=== PATIENT | male | born 1985 | race African-American/Black ===

== ENCOUNTER 2016-05-20 02:37 | Emergency (ER) | payer MEDICARE, MEDICAID ==
[~2016-05-20] VITALS: Ht 185.4 cm; Wt 120.0 kg
[~2016-05-20 02:37] MED LIST: CYCL5TAB PO; NAPR-576 PO
[2016-05-20 02:53] VITALS: BP 127/60; PULSE 81; RESP 16; TEMP 98; O2SAT 94
[2016-05-20] MEDS ORDERED: DICL75TA PO (03:21)
--- NOTE | 2016-05-20 03:24 | PD ---
HPI Chief Complaint: Pain: Acute or Chronic Time Seen by Provider: 03:21 Travel History International Travel<30 days: No Contact w/Intl Traveler<30days: No Traveled to known affect area: No History of Present Illness HPI 31-year-old black male presents to emergency department with complains of left foot pain. He states that he had stubbed his foot he recently and has had pain in his distal forefoot. He has not taking any medications at home for this. States the pain is mild. He denies any other medical complaints. Exacerbated by walking. Alleviated by elevation and rest. PFSH Past Medical History Narrative Medical Schizophrenia, Bipolar Blood Disorders: No Bipolar Disorder: Yes Anxiety: Yes Depression: No Cancer: No Cardiovascular Problems: No Diminished Hearing: No Endocrine: No Gastrointestinal Disorders: No Glaucoma: No Genitourinary: No Hiatal Hernia: No Immune Disorder: No Musculoskeletal: No Neurologic: No Psychiatric: Yes ([facility] 11/08/05) Reproductive: No Respiratory: No Schizophrenia: Yes Seizures: Yes Sleep Apnea: No Tetanus Vaccination: < 5 Years Past Surgical History Abdominal Surgery: No AICD: No Appendectomy: No Arteriovenous Shunt: No Cardiac Surgery: No Cholecystectomy: No Ear Surgery: No Endocrine Surgery: No Eye Surgery: No Genitourinary Surgery: No Gynecologic Surgery: No Insulin Pump: No Joint Replacement: No Neurologic Surgery: No Oral Surgery: No Pacemaker: No Thoracic Surgery: No Other Surgery: No Social History Alcohol Use: No Tobacco Use: Yes (FEW CIGS EVERY OTHER DAY) Substance Use: No Allergies-Medications (Allergen,Severity, Reaction): Coded Allergies: No Known Allergies (Verified , 03/17/15) Reported Meds & Prescriptions Reported Meds & Active Scripts Active Naproxen 500 Mg Tab 500 Mg PO Q12HR PRN Flexeril (Cyclobenzaprine HCl) 5 Mg Tab 5 Mg PO Q8HR PRN Review of Systems Except as stated in HPI: all other systems reviewed are Neg Musculoskeletal: Positive: Limited ROM, Pain, No: Myalgias, Arthralgias, Weakness, Cramping, Edema Physical Exam Narrative GENERAL: This is a well-nourished, well-developed patient, in no apparent distress. SKIN: No rashes, ecchymoses or lesions. Warm and dry. HEAD: Atraumatic. Normocephalic. EYES: PERRL, EOMI, no discharge or injection. No scleral icterus. EARS: Clear NOSE: Nasal turbinates appear normal. THROAT: Mucosa pink and moist. Airway patent. NECK: Trachea midline. supple, moves head freely. LUNGS: Clear to auscultation. CV: Regular in rhythm. ABDOMEN: Soft nontender. EXT: No clubbing cyanosis or edema. Examination of the left lower extremity is unremarkable. The patient's left foot reveals no erythema, warmth, tenderness or deformities. The skin is intact. He has good distal pulses. He ambulates with a normal gait. Data Data Last Documented VS Vital Signs Date Time Temp Pulse Resp B/P Pulse Ox O2 Delivery O2 Flow Rate FiO2 05/20/16 02:53 98.0 81 16 127/60 94 Orders Naproxen (Naprosyn) (05/20/16 03:30) MDM Medical Decision Making Medical Screen Exam Complete: Yes Emergency Medical Condition: Yes Medical Record Reviewed: Yes Differential Diagnosis MDM: High Differential diagnoses: Fracture, sprain, strain, dislocation, contusion, neurovascular injury Narrative Course This is left foot contusion Patient Instructions: General Instructions Additional Instructions: Rest. Elevation. Ice. Daily wound care with soap and water. Diclofenac for pain. Follow-up with your doctor or a vendor manager within 1 week. Med/Other Pt SpecificInfo: Prescription(s) given Scripts Diclofenac Sodium DR 75 Mg Tabdr75 Mg PO BID #20 TAB Prov:Ania Almaguer MD 05/20/16 Disposition: 01 DISCHARGE HOME Condition: Stable Julio Cesar Pool May 20, 2016 03:24
[2016-05-20] MEDS ORDERED: NAPROXEN 500 MG TAB PO ONE (03:30)
== END 2016-05-20 03:39 | disposition home or self-care (01) ==
LOC: NEPB 02:37
DX: S90.32XA Contusion of left foot, initial encounter (principal); W22.8XXA Striking against or struck by other objects, initial encounter
CPT/HCPCS: 99283

== ENCOUNTER 2016-06-06 23:51 | Emergency (ER) | payer MEDICARE, MEDICAID ==
[~2016-06-06 23:51] MED LIST changes: +DICL75TA PO
[2016-06-07] MEDS ORDERED: BROMSYP PO (00:31)
--- NOTE | 2016-06-07 00:33 | PD ---
HPI Chief Complaint: Cold / Flu Symptoms Time Seen by Provider: 00:31 Travel History International Travel<30 days: No Contact w/Intl Traveler<30days: No Traveled to known affect area: No History of Present Illness HPI 31-year-old black male presents to emergency Department with complaints of cough 10 days. He denies any fever chills. No ear pain or sore throat. No shortness of breath or wheezing. No nausea vomiting. No abdominal pain or diarrhea. No dysuria or frequency. PFSH Past Medical History Blood Disorders: No Bipolar Disorder: Yes Anxiety: Yes Depression: No Cancer: No Cardiovascular Problems: No Diminished Hearing: No Endocrine: No Gastrointestinal Disorders: No Glaucoma: No Genitourinary: No Hiatal Hernia: No Immune Disorder: No Musculoskeletal: No Neurologic: No Psychiatric: Yes ([facility] 11/08/05) Reproductive: No Respiratory: No Schizophrenia: Yes Seizures: Yes Sleep Apnea: No Past Surgical History Abdominal Surgery: No AICD: No Appendectomy: No Arteriovenous Shunt: No Cardiac Surgery: No Cholecystectomy: No Ear Surgery: No Endocrine Surgery: No Eye Surgery: No Genitourinary Surgery: No Gynecologic Surgery: No Insulin Pump: No Joint Replacement: No Neurologic Surgery: No Oral Surgery: No Pacemaker: No Thoracic Surgery: No Other Surgery: No Social History Alcohol Use: Yes Tobacco Use: Yes ("A LOT") Substance Use: No Allergies-Medications (Allergen,Severity, Reaction): Coded Allergies: No Known Allergies (Verified , 06/07/16) Reported Meds & Prescriptions Reported Meds & Active Scripts Active Diclofenac Sodium DR (Diclofenac Sodium) 75 Mg Tabdr 75 Mg PO BID Naproxen 500 Mg Tab 500 Mg PO Q12HR PRN Flexeril (Cyclobenzaprine HCl) 5 Mg Tab 5 Mg PO Q8HR PRN Review of Systems Except as stated in HPI: all other systems reviewed are Neg Physical Exam Narrative GENERAL: Well-developed, well-nourished in no acute distress. Nontoxic appearing. HEAD: Normocephalic, atraumatic. EYES: Pupils equal round and reactive. Extraocular motions intact. No scleral icterus. No injection or drainage. ENT: TMs clear without erythema. The external auditory canals clear. Nose: clear . Posterior pharynx is pink and moist. No tonsillar edema or exudate. Uvula midline. Airway patent. NECK: Trachea midline.Supple, nontender, moves head freely. No central bony tenderness or spasm. CARDIOVASCULAR: Regular rate and rhythm without murmurs, gallops, or rubs. RESPIRATORY: Clear to auscultation. Breath sounds equal bilaterally. No wheezes , rales, or rhonchi. GASTROINTESTINAL: Abdomen soft, non-tender, nondistended. No hepato-splenomegaly , or palpable masses. No guarding. EXTREMITIES: No clubbing, cyanosis, or edema. No joint tenderness, effusion, or edema noted. BACK: Nontender without deformity or crepitance. No flank tenderness. MDM Medical Decision Making Medical Screen Exam Complete: Yes Emergency Medical Condition: Yes Medical Record Reviewed: Yes Differential Diagnosis MDM: High Differential diagnoses: Pneumonia, bronchitis, URI, asthma, RAD, legionnaire's disease, SARS, ARDS, influenza, bronchiolitis, RSV,PE,CHF Narrative Course This is cough Diagnosis Primary Impression: Cough Patient Instructions: General Instructions Additional Instructions: Rest. Increase fluids. Bromfed. Follow-up with a primary care doctor in 1 week. Return to the ER for emergencies. Med/Other Pt SpecificInfo: Prescription(s) given Scripts Vffhtpwvpuqgoir-Unoambntjnczjvu-NP Liq (Bromfed DM Liq)30-2-10 Mg/5 Ml Syrp5 Ml PO Q6H PRN (COUGH AND/OR COLD SYMPTOMS) #1 BOTTLE Ref 1 Prov:Adri Brooke MD 06/07/16 Disposition: 01 DISCHARGE HOME Condition: Stable Julio Cesar Pool Jun 07, 2016 00:33
[2016-06-07 00:36] VITALS: BP 114/58; PULSE 77; RESP 16; TEMP 98.5; O2SAT 98
== END 2016-06-07 00:44 | disposition home or self-care (01) ==
LOC: NEPB 23:51
DX: R05 Cough (principal)
CPT/HCPCS: 99283

== ENCOUNTER 2016-07-02 16:59 | Emergency (ER) | payer MEDICARE, MEDICAID ==
[~2016-07-02] VITALS: Ht 185.4 cm; Wt 115.0 kg
[~2016-07-02 16:59] MED LIST changes: +BROMSYP PO
[2016-07-02 17:01] VITALS: BP 134/61; PULSE 58; RESP 17; TEMP 97.8; O2SAT 95
--- NOTE | 2016-07-02 20:32 | PD ---
HPI Chief Complaint: Cold / Flu Symptoms Time Seen by Provider: 20:05 Travel History International Travel<30 days: No Contact w/Intl Traveler<30days: No Traveled to known affect area: No History of Present Illness HPI Patient comes in complaining of a dry nonproductive cough ongoing for over 6 weeks. Patient denies any fevers, shortness of breath, chest pain, nausea, vomiting, diarrhea, abdominal pain, weight loss, neck pain, headache, back pain , or being around anyone else with similar. Patient denies doing anything for this. Patient denies falling up with his primary care doctor for this from previous ER visit for same earlier this month. Denies anything making it better or worse. History Past Medical Histgory Hx Cancer: No Social History Alcohol Use: Yes Tobacco Use: Yes ("A LOT") Allergies-Medications (Allergen,Severity, Reaction): Coded Allergies: No Known Allergies (Verified , 06/07/16) Reported Meds & Prescriptions Reported Meds & Active Scripts Active Bromfed DM Liq (Teajozjhgwqlqjt-Shynqpgmurphwlj-HC Liq) 30-2-10 Mg/5 Ml Syrp 5 Ml PO Q6H PRN Diclofenac Sodium DR (Diclofenac Sodium) 75 Mg Tabdr 75 Mg PO BID Naproxen 500 Mg Tab 500 Mg PO Q12HR PRN Flexeril (Cyclobenzaprine HCl) 5 Mg Tab 5 Mg PO Q8HR PRN Review of Systems Except as stated in HPI: all other systems reviewed are Neg Physical Exam Narrative GENERAL: Well-developed, well nourished, in no acute distress, and non-ill appearing. Patient is sleeping comfortably in bed in no acute distress. After easily waking the patient, he is asking for something to eat. SKIN: Warm and dry. HEAD: Atraumatic. Normocephalic. EYES: Pupils equal and round. EOMI. No scleral icterus. No injection or drainage. ENT: No nasal bleeding or discharge. Mucous membranes pink and moist. Tympanic membranes pearly scanlon bilaterally. Posterior pharynx nonerythematous without exudate. Uvula is midline. No tenderness to facial sinuses to palpation. NECK: Trachea midline. No cervical lymphadenopathy. Supple. No nuclear rigidity. CARDIOVASCULAR: Regular rate and rhythm. No murmur appreciated. RESPIRATORY: No accessory muscle use. No respiratory distress. Clear to auscultation. Breath sounds equal bilaterally. No coughing on exam. Patient speaking in full sentences easily. MUSCULOSKELETAL: No obvious deformities. No clubbing. No cyanosis. No edema. Full range of motion. NEUROLOGICAL: Awake and alert. No obvious cranial nerve deficits. Motor grossly within normal limits. Normal speech. PSYCHIATRIC: Appropriate mood and affect; insight and judgment normal. Data Data Last Documented VS Vital Signs Date Time Temp Pulse Resp B/P Pulse Ox O2 Delivery O2 Flow Rate FiO2 07/02/16 17:01 97.8 58 17 134/61 95 MDM Medical Screen Exam Complete: Yes Emergency Medical Condition: No Narrative Course History and physical exam findings are not consistent with an emergent medical condition. He was given the option of receiving additional care, but has declined. Therefore the appropriate counseling recommendations were discussed with the patient and he was instructed to follow-up with his primary care physician as soon as possible for reevaluation. Patient was also informed of community resources from which he can obtain additional care. He is agreeable and verbalizes an understanding of the proposed plan. The patient states he will immediately return to the emergency department if his current complaints do not improve, new symptoms arise, or emergent condition develops. Patient ambulated out of the emergency department without difficulty. Primary Impression: Encounter for medical screening examination Disposition: [facility]-ED USE ONLY Condition: Stable Deandre Weber Jul 02, 2016 20:32
== END 2016-07-02 20:30 | disposition left against medical advice (07) ==
LOC: NEPB 16:59
DX: R05 Cough (principal); Z72.0 Tobacco use
CPT/HCPCS: 99281

== ENCOUNTER 2016-08-18 00:55 | Emergency (ER) | payer MEDICARE, MEDICAID ==
[~2016-08-18] VITALS: Ht 185.4 cm; Wt 110.0 kg
[2016-08-18 00:58] VITALS: BP 142/76; PULSE 73; RESP 14; TEMP 98.5; O2SAT 97
[2016-08-18] MEDS ORDERED: SODIUM CHLORIDE 0.9% FLUSH 10 ML FLUSH IVF PRN (01:15)
--- NOTE | 2016-08-18 01:17 | PD ---
HPI Chief Complaint: GI Complaint Time Seen by Provider: 01:10 Travel History International Travel<30 days: No Contact w/Intl Traveler<30days: No Traveled to known affect area: No History of Present Illness HPI 31-year-old male with no past medical history, presents today with complaints of blood in his stool intermittently 4 years. The patient denies any dizziness , lightheadedness. The patient denies any abdominal pain. When asked about the blood in his stool, the patient states that when he wipes with toilet tissue. He states it's not there all the time it's there occasionally. There are no exacerbating or relieving factors. There are no other complaints time my examination. PFSH Past Medical History Blood Disorders: No Bipolar Disorder: Yes Anxiety: Yes Depression: No Cancer: No Cardiovascular Problems: No Diminished Hearing: No Endocrine: No Gastrointestinal Disorders: No Glaucoma: No Genitourinary: No Hiatal Hernia: No Immune Disorder: No Musculoskeletal: No Neurologic: No Psychiatric: Yes ([facility] 11/08/05) Reproductive: No Respiratory: No Immunizations Current: Yes Schizophrenia: Yes Seizures: Yes Sleep Apnea: No Past Surgical History Abdominal Surgery: No AICD: No Appendectomy: No Arteriovenous Shunt: No Cardiac Surgery: No Cholecystectomy: No Ear Surgery: No Endocrine Surgery: No Eye Surgery: No Genitourinary Surgery: No Gynecologic Surgery: No Insulin Pump: No Joint Replacement: No Neurologic Surgery: No Oral Surgery: No Pacemaker: No Thoracic Surgery: No Other Surgery: No Social History Alcohol Use: Yes Tobacco Use: Yes ("A LOT") Substance Use: No Allergies-Medications (Allergen,Severity, Reaction): Coded Allergies: No Known Allergies (Verified , 08/18/16) Reported Meds & Prescriptions Reported Meds & Active Scripts Active Zantac (Ranitidine HCl) 300 Mg Tab 300 Mg PO DAILY Review of Systems Except as stated in HPI: all other systems reviewed are Neg General / Constitutional: No: Fever, Chills HENT: No: Headaches Cardiovascular: No: Chest Pain or Discomfort, Palpitations Respiratory: No: Cough, Shortness of Breath Gastrointestinal: Positive: Other (intermittent blood in stool 4 years), No: Nausea, Vomiting, Abdominal Pain Musculoskeletal: No: Myalgias, Weakness Neurologic: No: Weakness, Dizziness Physical Exam Narrative GENERAL: Well-nourished, well-developed patient. SKIN: Focused skin assessment warm/dry. HEAD: Normocephalic. EYES: No scleral icterus. No injection or drainage. NECK: Supple, trachea midline. CARDIOVASCULAR: Regular rate and rhythm without murmurs, gallops, or rubs. RESPIRATORY: Breath sounds equal bilaterally. No accessory muscle use. GASTROINTESTINAL: Abdomen soft, non-tender, nondistended. No rebound or guarding. RECTAL EXAM: No masses or tenderness, stool is brown. NEUROLOGICAL: Awake and alert. Cranial nerves II through XII intact. Motor grossly within normal limits. Five out of 5 muscle strength in all muscle groups. Normal speech. Data Data Last Documented VS Vital Signs Date Time Temp Pulse Resp B/P Pulse Ox O2 Delivery O2 Flow Rate FiO2 08/18/16 01:32 23 96 Room Air 08/18/16 00:58 98.5 73 142/76 Orders Complete Blood Count With Diff (08/18/16 01:10) Ecg Monitoring (08/18/16 01:10) Iv Access Insert/Monitor (08/18/16 01:10) Oximetry (08/18/16 01:10) Sodium Chloride 0.9% Flush (Ns Flush) (08/18/16 01:15) Mandatory Outpatient Referral (08/18/16 01:53) Labs Laboratory Tests Test 08/18/16 01:20 White Blood Count 9.1 TH/MM3 Red Blood Count 5.40 MIL/MM3 Hemoglobin 14.2 GM/DL Hematocrit 43.5 % Mean Corpuscular Volume 80.6 FL Mean Corpuscular Hemoglobin 26.3 PG Mean Corpuscular Hemoglobin 32.6 % Concent Red Cell Distribution Width 15.0 % Platelet Count 207 TH/MM3 Mean Platelet Volume 9.2 FL Neutrophils (%) (Auto) 57.7 % Lymphocytes (%) (Auto) 29.1 % Monocytes (%) (Auto) 7.5 % Eosinophils (%) (Auto) 5.1 % Basophils (%) (Auto) 0.6 % Neutrophils # (Auto) 5.2 TH/MM3 Lymphocytes # (Auto) 2.6 TH/MM3 Monocytes # (Auto) 0.7 TH/MM3 Eosinophils # (Auto) 0.5 TH/MM3 Basophils # (Auto) 0.1 TH/MM3 CBC Comment DIFF FINAL Differential Comment [facility] Medical Decision Making Medical Screen Exam Complete: Yes Emergency Medical Condition: Yes Differential Diagnosis Hematochezia versus ulcer versus hemorrhoidal bleeding. Narrative Course 31-year-old male presents with complaints of intermittent rectal bleeding 4 years. The patient denies any dizziness, shortness of breath, palpitations, abdominal pain, or any other medical symptoms. The patient's CBC shows a stable hemoglobin. The patient's nontoxic. On rectal examination he had brown stool that tested trace positive. The be discharged with a prescription for Zantac 300 milligrams daily. He also have a mandatory outpatient referral for a GI referral. Diagnosis Primary Impression: Heme positive stool Additional Instructions: [place] diet. Return if large amount of blood per rectum, dizziness, shortness of breath. Med/Other Pt SpecificInfo: Prescription(s) given Scripts Ranitidine (Zantac)300 Mg Aqg565 Mg PO DAILY #30 TAB Ref 0 Prov:Timmy Gallo MD 08/18/16 Disposition: 01 DISCHARGE HOME Condition: Stable Timmy Gallo MD August 18, 2016 01:17
[2016-08-18 01:32] VITALS: RESP 23; O2SAT 96
[2016-08-18 01:45] LABS: AUTOMATED NEUTROPHIL # 5.2 TH/MM3 (1.8-7.7); BASOPHIL # 0.1 TH/MM3 (0-0.2); BASOPHIL % 0.6 % (0.0-2.0); EOSINOPHIL # 0.5 TH/MM3 (0-0.4); EOSINOPHIL % 5.1 % (0.0-4.0); HEMATOCRIT 43.5 % (39.0-51.0); HEMO FLAGS DIFF FINAL; LYMPH % 29.1 % (9.0-44.0); LYMPHOCYTE # 2.6 TH/MM3 (1.0-4.8); MEAN CELL VOLUME 80.6 FL (80.0-100.0); MEAN CORPUSCULAR HEMOGLOBIN 26.3 PG (27.0-34.0); MEAN CORPUSCULAR HGB CONC 32.6 % (32.0-36.0); MONO % 7.5 % (0.0-8.0); NEUT % 57.7 % (16.0-70.0); PLATELET COUNT 207 TH/MM3 (150-450); WHITE BLOOD COUNT 9.1 TH/MM3 (4.0-11.0)
[2016-08-18] MEDS ORDERED: ZANT300T PO (01:54)
== END 2016-08-18 02:20 | disposition home or self-care (01) ==
LOC: NEPE 00:55
DX: R19.5 Other fecal abnormalities (principal); F17.210 Nicotine dependence, cigarettes, uncomplicated
CPT/HCPCS: 85025; 99285